=== PATIENT | female | born 1955 | race Caucasian/White ===

== ENCOUNTER → 2016-08-05 | Outpatient (CLI) | payer OTHER, BC ==
[~2016-08-05] MED LIST: ALPR-411 PO; CARI350T28 PO; FLX10 PO; IBUP-1428 PO; LRT5 PO; METO1TAB69 PO; PANT40TA PO; RGL5 PO; SERT-234 PO
[2016-08-05 13:48] LABS: ESTIMATED AVERAGE GLUCOSE 180 mg/dl; HA1C FLAG Normal (Normal)
[2016-08-05 14:11] LABS: RATIO 6.7 mcg/mg (0-30.0)
[2016-08-05 14:18] LABS: ALT/SGPT 21 U/L (12-78); BLOOD UREA NITROGEN 12 mg/dl (7-18); BUN/CREATININE RATIO 14.9 (10-20); CALCIUM 8.9 mg/dl (8.5-10.1); CARBON DIOXIDE 28 mmol/L (21-32); CHLORIDE 101 mmol/L (98-107); CHOLESTEROL 155 mg/dl (0-200); CREATININE 0.79 mg/dl (0.60-1.20); GLUCOSE 161 mg/dl (70-99); POTASSIUM 3.9 mmol/L (3.5-5.1); SODIUM 142 mmol/L (136-145); TRIGLYCERIDES 150 mg/dl (0-150); VERY LOW DENSITY LIPOPROT CALC 30 mg/dl
[2016-08-05 14:29] LABS: CHOLESTEROL/HDL RATIO 3.5; HDL CHOLESTEROL 44 mg/dl
== END | disposition home or self-care (01) ==
LOC: C.LABMFLN 08:42
PROVIDERS: ATTEND Family Medicine
DX: Z00.00 Encounter for general adult medical examination without abnormal findings (principal); E11.9 Type 2 diabetes mellitus without complications; I10 Essential (primary) hypertension; E78.5 Hyperlipidemia, unspecified; E55.9 Vitamin D deficiency, unspecified; E53.8 Deficiency of other specified B group vitamins

== ENCOUNTER → 2016-11-22 | Outpatient (CLI) | payer BC, OTHER ==
[~2016-11-22] MED LIST changes: +METO100T44 PO; -METO1TAB69 PO
[2016-11-22 13:30] LABS: ESTIMATED AVERAGE GLUCOSE 197 mg/dl; HA1C FLAG Normal (Normal)
[2016-11-26 14:34] LABS: ASPERGILLUS FLAVUS Negative (Negative); ASPERGILLUS FUMIGATUS Negative (Negative); ASPERGILLUS NIGER Negative (Negative)
== END | disposition home or self-care (01) ==
LOC: C.LABMFLN 11:01
PROVIDERS: ATTEND Family Medicine
DX: R09.02 Hypoxemia (principal); J84.89 Other specified interstitial pulmonary diseases; E11.9 Type 2 diabetes mellitus without complications

== ENCOUNTER → 2017-07-05 | Outpatient (CLI) | payer OTHER ==
[2017-07-05 12:54] LABS: HEMOGLOBIN A1C 6.7 % (4.5-5.6)
[2017-07-05 13:07] LABS: ALT/SGPT 23 U/L (12-78); BLOOD UREA NITROGEN 14 mg/dl (7-18); CALCIUM 8.7 mg/dl (8.5-10.1); CARBON DIOXIDE 29 mmol/L (21-32); GLUCOSE 148 mg/dl (70-99); POTASSIUM 4.3 mmol/L (3.5-5.1); SODIUM 138 mmol/L (136-145)
[2017-07-05 13:08] LABS: LDL CHOLESTEROL (DIRECT) 102 mg/dl
== END | disposition home or self-care (01) ==
LOC: C.LABMFLN 08:59
PROVIDERS: ATTEND Family Medicine
DX: Z00.00 Encounter for general adult medical examination without abnormal findings (principal); E11.9 Type 2 diabetes mellitus without complications; I10 Essential (primary) hypertension; E78.5 Hyperlipidemia, unspecified

== ENCOUNTER → 2017-08-18 | Outpatient (CLI) | payer OTHER | END | disposition home or self-care (01) | LOC: C.LABMFLN 08:43 | PROVIDERS: ATTEND Family Medicine Adult Medicine | DX: R49.0 Dysphonia (principal) ==